=== PATIENT | female | born 1950 | race American Indian/Alaskan Native ===

== ENCOUNTER 2021-02-08 09:57 | Day surgery (SDC) | payer MEDICARE ==
[2021-02-08] MEDS ORDERED: ASPIRIN 81 MG TAB CHEW PO ONE (10:31)
[2021-02-08 10:48] LABS: Basophils # (Auto) 0.1 K/mm3 (0.0-0.1); Basophils % (Auto) 0.8 % (0.0-1.8); Eosinophils # (Auto) 0.1 K/mm3 (0.0-0.4); Eosinophils % (Auto) 0.8 % (0.0-4.3); Hematocrit 38.7 % (30.3-42.9); Hemoglobin 12.8 gm/dl (10.1-14.3); Lymphocytes # (Auto) 1.7 K/mm3 (1.2-5.4); Lymphocytes % (Auto) 13.4 % (13.4-35.0); Mean Corpuscular HGB Conc 33 % (30-34); Mean Corpuscular Volume 82 fl (79-97); Monocytes # (Auto) 0.5 K/mm3 (0.0-0.8); Monocytes % (Auto) 3.7 % (0.0-7.3); Platelet Count 250 K/mm3 (140-440); Red Blood Count 4.74 M/mm3 (3.65-5.03); Red Cell Distribution Width 13.4 % (13.2-15.2)
[2021-02-08] MEDS ORDERED: HEPARIN/NS 5000 UNIT/500ML 1,000 ML IR ONE (10:57)
[2021-02-08] MEDS ORDERED: NITROGLYCERIN SYRINGE 3 ML ONE (10:58)
[2021-02-08] MEDS ORDERED: LIDOCAINE (2%) 20 MG/1 ML VIAL 20 ML MDV INFILTRATI ONE (10:58)
[2021-02-08] MEDS ORDERED: ASPIRIN 325 MG TAB PO ONE (11:00)
[2021-02-08] MEDS ORDERED: diphenhydrAMINE 50 MG/ML VIAL IV ONE (11:00)
[2021-02-08] MEDS ORDERED: SODIUM CHLORIDE 0.9% 500 ML 500 ML IV SCH (11:00)
[2021-02-08 11:11] LABS: BUN/Creatinine Ratio TNR; Blood Urea Nitrogen TNR mg/dL (7-17); Calcium TNR mg/dL (8.4-10.2); Hemolysis Index TNR
[2021-02-08 11:15] LABS: INR 0.9 (0.87-1.13)
[2021-02-08 11:46] LABS: Blood Urea Nitrogen 14 mg/dL (7-17); Calcium 8.9 mg/dL (8.4-10.2); Hemolysis Index 11
[2021-02-08 11:49] LABS: BUN/Creatinine Ratio 23
[2021-02-08] MEDS: fentaNYL 100 MCG/2 ML INJ ONE ×2 (12:19→12:28)
[2021-02-08] MEDS: MIDAZOLAM 2 MG/2 ML INJ ONE ×2 (12:19→12:28)
[2021-02-08] MEDS: HEPARIN 10,000 UNITS/10 ML VIAL ONE ×2 (12:20→12:30)
[2021-02-08] MEDS: VERAPAMIL 5 MG/2 ML INJ ONE ×2 (12:21→12:30)
[2021-02-08] MEDS ORDERED: hydrALAZINE 20 MG/1 ML INJ ONE (12:32)
--- NOTE | 2021-02-08 12:45 | Short Stay Summary ---
Short Stay Documentation Date of service: 02/08/21 - History H&P: obtained from office - Allergies and Medications Current Medications: Allergies codeine Allergy (Verified 02/08/21 10:18) Rash iodine Allergy (Verified 02/08/21 10:18) Rash prochlorperazine [From Compazine] Allergy (Verified 02/08/21 10:18) Rash morphine Adverse Reaction (Verified 02/08/21 10:18) Rash Active Medications Sodium Chloride (Nacl 0.9% 500 Ml) 500 mls @ 50 mls/hr IV DIRECT JOHN - Physical exam Integumentary: other (dressing clean, dry, and intact no bleeding or hematoma) - Brief post op/procedure progress note Date of procedure: 02/08/21 Pre-op diagnosis: COPD, persistent SOB Post-op diagnosis: same Anesthesia: local Estimated blood loss: minimal - Disposition Condition at discharge: Good Disposition: 01 HOME / SELF CARE / HOMELESS - Discharge Diagnoses (1) COPD (chronic obstructive pulmonary disease) Status: Acute (2) SOB (shortness of breath) Status: Acute (3) HTN (hypertension) Status: Acute (4) Obesity Status: Acute Short Stay Discharge Plan Activity: advance as tolerated Diet: low fat, low cholesterol, low salt Wound: keep clean and dry, per your surgeon's advice Follow up with: KIKA CUENCA MD [Primary Care Provider] - 7 Days (Patient has a follow-up with Dr. Cuenca, [facility] hospital cleaning specialist, on 03/22/2021 at 3:45 PM at our [place] location. Phone [phone])
[2021-02-08 14:32] VITALS: BP 179/73
--- NOTE | 2021-02-08 14:53 | Cardiac Catherization Report ---
DATE OF SERVICE: 02/08/2021 LEFT HEART CATHETERIZATION CLINICAL INFORMATION: This is a 70-year-old patient with morbid obesity, shortness of breath with PND on diuretics, having intermittent chest pain, here for left heart catheterization for definitive diagnosis. The patient was then started with moderate sedation, started at 12:28 a.m., finished at 12:38; ten minutes of moderate sedation. DESCRIPTION OF PROCEDURE: Procedure was done via the right radial artery, sterile technique and local anesthesia. A 6-Slovak radial sheath inserted. Left system engaged with a JL3.5 catheter. Left main is large and patent, and bifurcates into a large caliber LAD that is patent. Then, diagonal 1, diagonal 2, small to medium caliber patent, moderate tortuosity of the LAD. Circumflex is a large caliber vessel that bifurcates into medium caliber OM1, OM2 that are patent with moderate tortuosity. RCA engaged with JR4, is a large dominant vessel, was patent proximally and distally. PDA and PLV are medium caliber, was patent. LV gram done in [place] and [place] shows normal LV function, elevated left end-diastolic pressure of 36 mmHg, LV is 197, aortic is 197/89. No gradient across the aortic valve on pullback. A 5-Slovak catheters all taken over guidewire. A 6-Slovak radial sheath was discontinued. Radial band applied. No hematoma, no bleeding. SUMMARY: Left main patent, LAD patent, circ patent. OM1, OM2, patent with moderate tortuosity. RCA large, dominant patent, normal LV function, elevated left end-diastolic pressure of 36 mmHg. Aggressive risk factor modification for BP control. TID: [id number] RECEIPT: [id number] SHRUTHI/AMADOR/DENA
--- NOTE | 2021-02-10 11:35 | Electrocardiograph Report ---
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
== END 2021-02-08 15:10 | disposition home or self-care (01) ==
LOC: CATHLABREC 09:57
PROVIDERS: ATTEND Internal Medicine
DX: R07.89 Other chest pain (principal); J96.11 Chronic respiratory failure with hypoxia; E11.9 Type 2 diabetes mellitus without complications; E66.01 Morbid (severe) obesity due to excess calories; I11.0 Hypertensive heart disease with heart failure; I50.9 Heart failure, unspecified; J44.9 Chronic obstructive pulmonary disease, unspecified; G47.30 Sleep apnea, unspecified; K21.9 Gastro-esophageal reflux disease without esophagitis; M19.90 Unspecified osteoarthritis, unspecified site; F41.9 Anxiety disorder, unspecified; E78.00 Pure hypercholesterolemia, unspecified; Z79.82 Long term (current) use of aspirin; Z79.84 Long term (current) use of oral hypoglycemic drugs; Z79.899 Other long term (current) drug therapy; Z90.49 Acquired absence of other specified parts of digestive tract; Z98.890 Other specified postprocedural states; Z88.5 Allergy status to narcotic agent; Z91.041 Radiographic dye allergy status; Z88.6 Allergy status to analgesic agent; Z88.8 Allergy status to other drugs, medicaments and biological substances; Z82.49 Family history of ischemic heart disease and other diseases of the circulatory system
CPT/HCPCS: 36415; 80048; 85025; 85610; 93005; 93458; 99156; C1894; J0360; J1200; J1644; J2250; J3010; J7040; Q9967